=== PATIENT | male | born 1935 | race Caucasian/White ===

== ENCOUNTER 2017-12-25 09:49 | Emergency (ER) | payer MEDICARE ==
[~2017-12-25] VITALS: Ht 172.7 cm; Wt 74.0 kg
[~2017-12-25 09:49] MED LIST: 1-ME1LIQ PO; ASPI81TA82 PO; CELE200C PO; DONE1TAB3 PO; HYDR12.56 PO; LISI40TA PO; MIRA25TA PO; NAME5TAB2 PO
[2017-12-25 09:55] VITALS: BP 159/64; PULSE 64; RESP 16; TEMP 98.4; O2SAT 96
[2017-12-25] MEDS ORDERED: CELE1CAP8 PO (09:59)
[2017-12-25] MEDS ORDERED: ASPI1TAB57 PO (09:59)
[2017-12-25] MEDS ORDERED: MIRA25TA PO (09:59)
[2017-12-25] MEDS ORDERED: AMLO10TA2 PO (09:59)
[2017-12-25] MEDS ORDERED: SERT-132 PO (09:59)
[2017-12-25] MEDS ORDERED: DONE10TA7 PO (09:59)
[2017-12-25] MEDS ORDERED: VITA500T35 PO (09:59)
[2017-12-25] MEDS ORDERED: MEMA1TAB2 PO (09:59)
[2017-12-25] MEDS ORDERED: LISI40TA PO (09:59)
[2017-12-25] MEDS ORDERED: HYDR12.57 PO (09:59)
--- NOTE | 2017-12-25 10:36 | PD ---
HPI Chief Complaint: Allergic/Adverse Reaction Time Seen by Provider: 10:32 Travel History International Travel<30 days: No Contact w/Intl Traveler<30days: No Traveled to known affect area: No History of Present Illness HPI This 82-year-old male is brought for angioedema of the right side of his face. He resides at home. He has home health nurses that come in. The nurse came in this morning and noted the right side of his face was swollen. He has a history of hypertension and he is on lisinopril among other medicines. He does have some dementia. He is unable to say exactly when this started. The home health nurse was there yesterday. He is not short of breath. He is not itching. PFSH Past Medical History Arthritis: Yes Cancer: Yes (Prostate, skin) Cardiovascular Problems: Yes (HTN, syncope) Dementia: Yes Hypertension: Yes Tetanus Vaccination: < 5 Years Influenza Vaccination: No Past Surgical History Joint Replacement: Yes ((R) knee) Tonsillectomy: Yes Other Surgery: Yes (Prostatectomy) Social History Alcohol Use: No Tobacco Use: No Substance Use: No Allergies-Medications (Allergen,Severity, Reaction): Coded Allergies: No Known Allergies (Unverified Adverse Reaction, Unknown, 12/25/17) Reported Meds & Prescriptions Reported Meds & Active Scripts Active Reported Sertraline (Sertraline HCl) 50 Mg Tab 50 Mg PO DAILY Donepezil 10 Mg Tab 10 Mg PO HS Lisinopril 40 Mg Tab 40 Mg PO DAILY Vitamin B12 (Cyanocobalamin) 500 Mcg Tab 500 Mcg PO BID Memantine 10 Mg Tab 10 Mg PO BID Myrbetriq (Mirabegron) 25 Mg Tab 25 Mg PO BID Celecoxib 200 Mg Cap 200 Mg PO BID Aspirin 81 (Aspirin) 81 Mg Tabdr 81 Mg PO DAILY Amlodipine (Amlodipine Besylate) 10 Mg Tab 10 Mg PO DAILY Hydrochlorothiazide 12.5 Mg Cap 12.5 Mg PO DAILY Review of Systems ROS Limitations: Poor Historian General / Constitutional: No: Fever, Chills Respiratory: No: Shortness of Breath Neurologic: No: Weakness Psychiatric: No: Anxiety Hematologic/Lymphatic: No: Easy Bruising Physical Exam Narrative GENERAL: Well developed male SKIN: Focused skin assessment warm/dry. HEAD: Atraumatic. Normocephalic. EYES: Pupils equal and round. No scleral icterus. No injection or drainage. ENT: No nasal bleeding or discharge. Mucous membranes pink and moist. There is soft tissue swelling of the upper and lower lip on the right side. The airway is patent NECK: Trachea midline. No JVD. CARDIOVASCULAR: Regular rate and rhythm. No murmur appreciated. RESPIRATORY: No accessory muscle use. Clear to auscultation. Breath sounds equal bilaterally. GASTROINTESTINAL: Abdomen soft, non-tender, nondistended. Hepatic and splenic margins not palpable. MUSCULOSKELETAL: No obvious deformities. No clubbing. No cyanosis. No edema. NEUROLOGICAL: Awake and alert. No obvious cranial nerve deficits. Motor grossly within normal limits. Normal speech. PSYCHIATRIC: Appropriate mood and affect; insight and judgment normal. Data Data Last Documented VS Vital Signs Date Time Temp Pulse Resp B/P (MAP) Pulse Ox O2 Delivery O2 Flow Rate FiO2 12/25/17 09:55 98.4 64 16 159/64 (95) 96 Orders Orders Methylprednisolone So Succ Inj (Solumedr (12/25/17 10:45) MDM Medical Decision Making Medical Screen Exam Complete: Yes Emergency Medical Condition: Yes Medical Record Reviewed: Yes Differential Diagnosis Differential includes angioedema, allergic reaction, adverse medication reaction Narrative Course This gentleman has angioedema and he is on a ANABELLA inhibitor so I am going to recommend that the ANABELLA inhibitor be stopped. He will be given a single dose of Solu-Medrol though his reactions appears stable Diagnosis Primary Impression: Angioedema Additional Instructions: Stop lisinopril, follow-up with Dr. Benton Disposition: 01 DISCHARGE HOME Condition: Stable Otf Romero MD Dec 25, 2017 10:36
[2017-12-25] MEDS ORDERED: methylPREDNISolone SOD SUCC 125 MG/2 ML VIAL IV PUSH SCH (10:45)
== END 2017-12-25 10:50 | disposition home or self-care (01) ==
LOC: PHED 09:49
DX: F03.90 Unspecified dementia, unspecified severity, without behavioral disturbance, psychotic disturbance, mood disturbance, and anxiety (principal); I10 Essential (primary) hypertension; M19.90 Unspecified osteoarthritis, unspecified site; Z85.46 Personal history of malignant neoplasm of prostate; Z85.828 Personal history of other malignant neoplasm of skin
CPT/HCPCS: 96374; 99284; J2930